=== PATIENT | male | born 1990 | race Caucasian/White ===

== ENCOUNTER 2019-12-06 03:36 | Observation (INO) | payer SELFPAY ==
[2019-12-06] MEDS ORDERED: Ondansetron PF 4 MG/2 ML Vial ONE ×2 (04:00→05:18)
[2019-12-06 04:23] LABS: #Eosinphils 0.1 thou/uL (0.0-0.7); #Monocytes 0.7 thou/uL (0.11-0.59); #Neutrophils 5.7 thou/uL (1.40-6.50); %Basophils 0.4 % (0.0-1.0); %Eosinophils 0.7 % (0.0-10.0); %Lymphocytes 31.1 % (21.0-51.0); %Monocytes 7.5 % (0.0-10.0); %Neutrophils 60.2 % (42.0-75.0); Hemoglobin 17.6 g/dL (14.0-18.0); Mean Corpuscular HGB CONC 34.1 g/dL (32.0-36.0); Mean Corpuscular Hemoglobin 32.5 pg (27.0-31.0); Mean Corpuscular Volume 95.4 fL (78.0-98.0); Mean Platelet Volume 7.7 fL (7.4-10.4); Platelet Count 310 thou/uL (130-400); RBC Distribution Width 11.6 % (11.5-14.5); Red Blood Cell (RBC) Count 5.41 mill/uL (4.70-6.10); White Blood Cell (WBC) Count 9.5 thou/uL (4.8-10.8)
[2019-12-06] MEDS ORDERED: Morphine 4 MG/ML VIAL ONE ×2 (04:30→05:18)
[2019-12-06 04:32] LABS: Acetaminophen Less than 6.0 mcg/mL (10.0-30.0); Alcohol Less than 10 mg/dL (Less than 10); Salicylate Less than 8.0 mg/dL (15.0-30.0)
[2019-12-06 04:34] LABS: ALT (SGPT) 16 U/L (8-55); AST (SGOT) 28 U/L (5-34); Albumin 4.9 g/dL (3.5-5.0); Alkaline Phosphatase 66 U/L (40-110); Anion Gap 20 mmol/L (10-20); BUN (Urea Nitrogen) 13 mg/dL (8.9-20.6); Bilirubin, Total 3.4 mg/dL (0.2-1.2); Calc. Creatinine Clearance 0 mL/min (70-130); Calcium 9.7 mg/dL (7.8-10.44); Carbon Dioxide 19 mmol/L (22-29); Chloride 100 mmol/L (98-107); Estimated GFR-MDRD 68; Globulin 2.8 g/dL (2.4-3.5); Glucose 152 mg/dL (70-105); Potassium 3.5 mmol/L (3.5-5.1); Protein, Total 7.7 g/dL (6.0-8.3); Sodium 135 mmol/L (136-145)
--- NOTE | 2019-12-06 07:28 | HP ---
This is Junior Ayoub PA-C dictating a report for Pepe Colvin MD. REQUESTING PHYSICIAN: Dr. Corona. ATTENDING SURGEON: Dr. Colvin. CONSULTATIONS: Neurosurgery, Dr. Russell. HISTORY OF PRESENT ILLNESS: The patient is a 28-year-old man, who was brought by POV to the emergency department after reportedly falling out of bed. This was unwitnessed and the patient's girlfriend thought that he had a seizure, but it is very unclear whether it was before, during, or after his fall. The patient has no reported history of seizures. Has no recent illnesses. He is not on any medications. He denies any illicit drug use, though has taken Xanax in the past recreationally, but that has been many days ago. The patient denies any bowel or bladder incontinence, and he is amnestic to all the events. The patient underwent evaluation and examination, and was noted to have a T6 compression fracture. We were asked to evaluate the patient for admission and obtain neurosurgical consultation. Of note, a prolactin was not drawn on this patient. ALLERGIES: NONE. CURRENT MEDICATIONS: None. PAST MEDICAL HISTORY: None. PAST SURGICAL HISTORY: Right inguinal lymph node biopsy. SOCIAL HISTORY: The patient lives with his girlfriend and child. 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 He drinks alcohol once every 1 to 2 weeks. Has not had any in more than a day from this accident. He denies tobacco use or drug use. FAMILY MEDICAL HISTORY: No reported history of seizure disorders. REVIEW OF SYSTEMS: Ten-point review of systems is negative as otherwise stated PHYSICAL EXAMINATION: VITAL SIGNS: Blood pressure 134/81, heart rate 90, respirations 19, oxygen saturation is 100% on room air, and temperature is 98.3. GENERAL: The patient is resting comfortably in bed. He is immobilized in a cervical collar. He is awake, alert, and oriented, with a [place] Coma Scale of 15. Of note, though he is amnestic to the events. HEENT: Head; the patient has abrasions and contusions noted to the left side of his forehead, scalp, and left periorbital area. Eyes; extraocular motion intact. PERRLA bilaterally. Ears are atraumatic without discharge. Nose, atraumatic without discharge. Oropharynx is clear. NECK: Tender to the midline at the level of C6-C7. His trachea is midline. No JVD. C-collar remained and was replaced. CHEST: Clear to auscultation with good inspiratory and expiratory effort. HEART: Regular rate and rhythm. ABDOMEN: Soft, flat, nontender with active bowel sounds. Pelvis is stable. EXTREMITIES: Neurovascularly intact x4. Strength is 5/5. BACK: Tender for most of the upper lumbar area with no noted contusions or abrasions. LABORATORY FINDINGS: White blood cell count 9.5, hemoglobin 17.6, hematocrit 51.6, platelets 310. Sodium 135, potassium 3.5, chloride 100, CO2 19, BUN 13, creatinine 1.25, glucose 152. LFTs are unremarkable with the exception of a total bilirubin of 3.4. Blood alcohol is less than 10. RADIOGRAPHIC FINDINGS: CT of the brain without contrast shows no acute abnormality. CT of the C-spine without contrast shows no acute findings. CT of the thoracic spine shows an acute T6 compression/burst fracture extending to the posterior cortex with mild fragmentation posteriorly causing minimal mass effect upon the ventral subarachnoid space. CT of the L-spine is unremarkable. ASSESSMENT/PLAN: 1. Status post fall from bed. The patient reports his bed height to be approximately 3 to 4 feet. 2. T6 compression/burst fracture. 3. Cervical spine tenderness. 4. Forehead contusion and abrasions. 5. Possible postconcussive seizure. PLAN: Plan will be to admit the patient to the surgical floor. We will keep him n.p.o. until he is evaluated by Neurosurgery, who on initial report will treat this nonoperatively with a brace. The patient will have pain control, pulmonary toilet, gastritis, and mechanical VTE prophylaxis. Once the patient is fitted with a brace and we were able to sit him up, we will start a diet and have him work with the therapist once his pain is controlled. He is ambulatory. He will likely be able to be discharged home and this could be within next 24 to 48 hours. The evaluation, examination, laboratory, and radiographic findings will be discussed with Dr. Colvin after this dictation. Job ID: [id number]
[2019-12-06] MEDS ORDERED: Sodium Chloride 0.9% 1,000 ML IV SCH (07:50)
[2019-12-06] MEDS ORDERED: traMADol HCl 50 MG TAB PO PRN (07:50)
[2019-12-06] MEDS ORDERED: Ketorolac Tromethamine 30 MG/ML VIAL IVP SCH (07:50)
[2019-12-06] MEDS ORDERED: Cyclobenzaprine 10 MG TAB PO PRN (07:50)
[2019-12-06] MEDS ORDERED: Dextrose 5% in Water 1,000 ML IV PRN (07:50)
[2019-12-06] MEDS ORDERED: Dextrose 50% Abboject 50 ML SYRINGE SLOW IVP PRN (07:50)
--- NOTE | 2019-12-06 07:53 | CT ---
PRELIMINARY REPORT/DIRECT RADIOLOGY/EMERGENCY AFTER HOURS PROCEDURE: EXAM: CT Cervical Spine Without Intravenous Contrast. CLINICAL HISTORY: ER 13.. PT HAD A SEIZURE TONIGHT WHILE SLEEPING. PT DENIES HX OF SEIZURE OR MEMORY OF THE INCIDENT. PT FELL FROM BED, PT C/O MID BACK PAIN COMPARISON: None provided. FINDINGS: BONES: No acute fracture is seen in the cervical spine. Nonspecific straightening of the cervical joaquim dosis, possibly positional or due to muscle spasm. Minimal grade 1 anterolisthesis of C2 on C3. DISCS / DEGENERATIVE CHANGES: Intervertebral disc spaces are preserved. SOFT TISSUES: No prevertebral soft tissue swelling. IMPRESSION: No acute fracture is seen in the cervical spine. ELECTRONICALLY SIGNED BY: Al Prabhakar MD Dec 06, 2019 4:53:09 AM APARTMENT LEASING AGENT FINAL REPORT CT CERVICAL SPINE WITHOUT CONTRAST: History: Seizure. Comparison: None. Findings: No acute fracture or malalignment. Impression: Findings and impression are concordant with the preliminary report. Transcribed Date/Time: 12/06/2019 8:14 AM
--- NOTE | 2019-12-06 07:54 | CT ---
PRELIMINARY REPORT/DIRECT RADIOLOGY/EMERGENCY AFTER HOURS PROCEDURE: EXAM: CT Head Without Intravenous Contrast. CLINICAL HISTORY: ER 13.. PT HAD A SEIZURE TONIGHT WHILE SLEEPING. PT DENIES HX OF SEIZURE OR MEMORY OF THE INCIDENT. PT FELL FROM BED, PT C/O MID BACK PAIN COMPARISON: None provided. FINDINGS: BRAIN: No acute intracranial hemorrhage, mass-effect, or midline shift. No CT evidence of acute infar ct in a large vascular territory. Minimal nonspecific subcortical white matter hypoattenuation. VENTRICLES: Normal in size and configuration for age. ORBITS: The orbits are unremarkable. SINUSES AND MASTOIDS: Minimal sinus mucosal thickening. No air-fluid levels. SOFT TISSUES: No sizable scalp hematoma. BONES: No depressed calvarial fracture. IMPRESSION: No acute intracranial abnormality. Minimal nonspecific white matter changes. ELECTRONICALLY SIGNED BY: Al Prabhakar MD Dec 06, 2019 4:50:27 AM REGULATORY LEAD FINAL REPORT CT BRAIN WITHOUT CONTRAST: History: Seizure. Fall. Comparison: None. Findings/Impression: Majority of the findings and impression are concordant with the preliminary report. No significant wh ite matter changes are appreciated. Transcribed Date/Time: 12/06/2019 8:23 AM
--- NOTE | 2019-12-06 07:56 | CT ---
PRELIMINARY REPORT/DIRECT RADIOLOGY/EMERGENCY AFTER HOURS PROCEDURE: EXAM: CT Lumbar Spine Without Intravenous Contrast. CLINICAL HISTORY: ER 13.. PT HAD A SEIZURE TONIGHT WHILE SLEEPING. PT DENIES HX OF SEIZURE OR MEMORY OF THE INCIDENT. PT FELL FROM BED, PT C/O MID BACK PAIN COMPARISON: None provided. FINDINGS: BONES: No acute fracture is seen in the lumbar spine. Anatomic alignment. DISCS/DEGENERATIVE CHANGES: Intervertebral disc spaces are preserved. SOFT TISSUES: Unremarkable. IMPRESSION: No acute fracture is seen in the lumbar spine. ELECTRONICALLY SIGNED BY: Al Prabhakar MD Dec 06, 2019 4:56:43 AM ORDER CHECKER PACKER PROCESSER FINAL REPORT CT LUMBAR SPINE WITHOUT CONTRAST: History: Trauma. Pain. Comparison: None. Findings/IMPRESSION: Findings and impression are concordant with the preliminary report. Transcribed Date/Time: 12/06/2019 8:21 AM
--- NOTE | 2019-12-06 08:01 | CT ---
PRELIMINARY REPORT/DIRECT RADIOLOGY/EMERGENCY AFTER HOURS PROCEDURE: Note: There was an inquiry about the T1 spinous process deformity, which appears well-corticated, sug gesting a chronic finding. Addendum electronically signed by Al Prabhakar MD on December 06, 2019 5:12:37 AM TIMBER POISONER IMPRESSION (additional): Mild T5 wedge compression deformity, also suspicious for an acute fracture. I personally discussed this additional finding with Dr. David Saenz via telephone at 5:59 AM EST on 09/2020. Addendum electronically signed by Al Prabhakar MD on December 06, 2019 5:03:26 AM TIMBER POISONER Receipt of this report by the clinical staff was confirmed with DENISE DURAN MD by Nikki Carreno on Dec 06, 2019 04:51:00 TIMBER POISONER. Addendum electronically signed by Teresa Carreno on December 06, 2019 4:51:42 AM TIMBER POISONER EXAM: CT Thoracic Spine Without Intravenous Contrast. CLINICAL HISTORY: ER 13.. PT HAD A SEIZURE TONIGHT WHILE SLEEPING. PT DENIES HX OF SEIZURE OR MEMORY OF THE INCIDENT. PT FELL FROM BED, PT C/O MID BACK PAIN COMPARISON: None provided. FINDINGS: BONES: Diffuse demineralization of the osseous structures. Acute T6 burst fracture extending to the p osterior cortex with mild fragmentation posteriorly causing minimal mass-effect upon the ventral subarachnoid space. MRI is recommended for further characterization. DISCS / DEGENERATIVE CHANGES: Mild multilevel spondylosis with loss of intervertebral disc space and osteophytic spurring. SOFT TISSUES: No pneumothorax. Dependent hypoventilatory changes in the visualized lung reveles. IMPRESSION: Acute T6 compression/burst fracture extending to the posterior cortex with mild fragmentation posteri luis alfredo causing minimal mass-effect upon the ventral subarachnoid space. MRI is recommended for further characterization. ELECTRONICALLY SIGNED BY: Al Prabhakar MD Dec 06, 2019 4:47:28 AM TIMBER POISONER FINAL REPORT CT THORACIC SPINE WITHOUT CONTRAST: History: Pain. Fall from bed. Comparison: None. Findings/impression: Complete burst fracture of T6 as described with minimal retropulsion. There is also an incomplete bur st fracture of T5 with 10% anterior height loss and 15% superior endplate height loss. No significant retropulsion. There are fractures through the heads of the left fifth and sixth ribs. Con cern for a nondisplaced left T6 transverse process fracture. Transcribed Date/Time: 12/06/2019 8:18 AM
[2019-12-06] MEDS: traMADol HCl 50 MG TAB PO SCH ×2 (08:42→14:13)
[2019-12-06] MEDS ORDERED: Famotidine 20 MG TAB PO SCH (09:00)
--- NOTE | 2019-12-06 09:09 | CON ---
DATE OF CONSULTATION: HISTORY OF PRESENT ILLNESS: The patient is a 28-year-old male, who presented to the Emergency Department after falling event off his bed with questionable seizure like activity. He has no prior history of seizures. He was brought to the Emergency Department for additional evaluation and for his complaints of significant back pain. A noncontrast CT of the head, C-spine, T-spine, and L-spine were done, which were notable for T5 compression fracture and a T6 burst deformity with mild retropulsion. The patient was neurologically intact throughout his ER course, not complaining of dysesthesias or weakness or bowel or bladder issues. I visited the patient at the bedside on Reserve-3. He is awake and alert, in no acute distress. No neurologic deficits are appreciated. He is currently on spinal precautions until he is fitted with his CTLSO brace. He is currently in a hard collar as well. PAST MEDICAL HISTORY: Otherwise healthy. Denies any prior medical problems. PAST SURGICAL HISTORY: Right inguinal, no biopsy. SOCIAL HISTORY: He lives with his girlfriend. 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 Drinks socially. Does not use any drugs. He does not smoke. REVIEW OF SYSTEMS: Per HPI. PHYSICAL EXAMINATION: VITAL SIGNS: Stable. CONSTITUTIONAL: Awake and alert, in no acute distress. HEENT: Head, abrasions noticed along the left side of the forehead and periorbital region. Eyes, PERRLA. Extraocular movements intact. ENT, oral mucosa is pink, intact, and moist. He has normal voice. NECK: He is currently being immobilized in a hard collar. He is slightly tender over the posterior lower cervical spine. CARDIOVASCULAR: Regular rate and rhythm. RESPIRATORY: Symmetric chest expansion. No evidence of dyspnea. MUSCULOSKELETAL: Free active range of motion of all extremities. No focal motor weakness. No reflex asymmetry. ASSESSMENT AND PLAN: This is a 28-year-old male, status post fall from bed with questionable seizure, who was found to have a T5 compression deformity and a T6 burst fracture with mild retropulsion. He is neurologically intact and not having any dysesthesias or other neurologic complaints. I have ordered a custom brace to be fitted by [facility]. The patient should wear the brace at all times. Once he is fitted with a brace, he can begin to mobilize. I do not anticipate any acute neurosurgical intervention at this time, but we will follow his progress closely. I have discussed this plan with Dr. Russell, who is in agreement. Job ID: [id number] MTDD
[2019-12-06] MEDS: Ondansetron PF 4 MG/2 ML Vial IVP PRN ×2 (10:48→18:26)
[2019-12-06] MEDS ORDERED: Ondansetron ODT 4 MG TAB PO PRN (11:22)
[2019-12-06 11:37] VITALS: BMI 21.1
[2019-12-06] MEDS ORDERED: Ibuprofen 600 MG TAB PO SCH (14:00)
[2019-12-06] MEDS ORDERED: Pantoprazole 40 MG VIAL IVP SCH (14:45)
[2019-12-06] MEDS ORDERED: Acetaminophen/Codeine 30-300mg Tablet PO PRN ×2 (15:06)
[2019-12-06] MEDS ORDERED: Acetaminophen 650 MG Suppository PR SCH (15:15)
--- NOTE | 2019-12-06 15:41 | PRG ---
DATE OF SERVICE: 12/06/2019 The patient was seen and examined. I agree with Tigist Brandyn's evaluation on 12/06/2019. The patient is a 28-year-old male, who apparently either fell out of bed or had some type of syncopal or seizure episode yesterday. He has poor recall of the event and is generally not a great historian. He is having some upper back pain that is gradually improving. He has no specific neurologic findings or complaints. Imaging including CT of the brain, cervical, and lumbar spine is normal. CT of the thoracic spine reveals T5 and T6 fractures. The T6 being of meaningful severity. There is minimal canal compromise, but slight increase in kyphosis. IMPRESSION AND PLAN: The patient has T5 and T6 fractures that we will treat in TLSO brace. Given the location of the fractures, it is possible he will ultimately require CTLSO immobilization, but for now, we will try the clamshell type TLSO at all times. We will see him back in 4 weeks in followup. After close discussion with the family, there was a fall from a ladder onto a marble floor, which seems fairly significant approximately 6 to 8 weeks ago. It is possible these fractures were sustained at that time, but impossible to say with any certainty. Job ID: [id number]
--- NOTE | 2019-12-06 17:12 | PRG ---
DATE OF SERVICE: 12/06/2019 Moses Leonard fell in bed, suffered a T5 compression and T6 burst fracture. He has been treated by Neurosurgery with a brace. He has now required that and immobilized. He reports that he has a history of GERD, Andrews esophagus, and has a sensitive stomach. He cannot tolerate Ultram. I have talked to the nurses that we will continue efforts at Tylenol and ibuprofen, but use Tylenol No.3 if necessary. The patient possibly could go home tomorrow if he tolerates his medications and pain is adequately controlled. I agree with plan per Emilia Gibbs. Job ID: [id number]
[2019-12-06] MEDS: Morphine 4 MG/ML VIAL SLOW IVP PRN (18:26)
[2019-12-06] MEDS: Acetaminophen 325 MG TAB PO SCH ×2 (18:28→23:37)
--- NOTE | 2019-12-06 19:23 | PRG ---
DATE OF SERVICE: 12/06/2019 SUBJECTIVE: Mr. Leonard is a 28-year-old male, status post fall from a bed. He has sustained T5 compression fracture and T6 burst fracture with neurological intact, and not having any neurology complaints. Per Neurosurgery, he will need to have treated conservatively with TLSO brace. Today, the patient reports he developed some episodes of nausea and vomiting, which he has trouble taking p.o. medication, pain is severe. However, vital signs have been stable. He tolerated the diet. Currently, the patient sits on a chair with no acute respiratory distress. Complains of back pain and feeling of nausea. The patient does have history of gastric ulcer and reflux. OBJECTIVE: VITAL SIGNS: Temperature 99.5, heart rate 104, respiratory rate 18, O2 saturation 96% on room air, blood pressure 136/87. LUNGS: Clear bilaterally. HEART: Regular rate and rhythm. ABDOMEN: Soft, nondistended. EXTREMITIES: Neurovascularly intact x4. NEUROLOGIC: No focal neurology deficits. ASSESSMENT: Status post fall from bed, T5 compression fracture and T6 burst fracture with no neurological deficits, history of peptic ulcer. PLAN: We will discontinue Toradol. Initiate Protonix treatment for peptic ulcer, Zofran for nausea and vomiting. We will order Tylenol and Tylenol No. 3 for pain control. The patient reports he is not tolerated with tramadol, and wear TLSO brace at all time. Per Neurosurgery, the patient can be discharged tomorrow. We will need to see a neurosurgeon in 6 to 8 weeks and we will follow up on peptic ulcer symptoms. The patient was seen by Dr. Colvin, who agreed with treatment and diagnosis and treatment plan. Job ID: [id number]
--- NOTE | 2019-12-07 05:31 | PRG ---
DATE OF SERVICE: SUBJECTIVE: The patient remains on the surgical floor. He is status post admission for fractures of T5 and T6. He was evaluated by Neurosurgery today, who recommended TLSO brace, but may eventually require a CTLSO brace. The patient had some issues with some significant nausea and vomiting, which he attributed to his gastroesophageal reflux disease and the Ultram. These medications were adjusted, and he reports resolution of his nausea. The patient does have his brace fitted. He is in a TLSO brace with an Laurel collar. The patient otherwise states his pain is controlled, and he is using the bathroom without difficulty. OBJECTIVE: VITAL SIGNS: Stable. The patient's [place] Coma Scale is 15. He is neurologically intact. ASSESSMENT: Status post T5 and T6 fractures. PLAN: Plan will be to continue supportive care, encourage physical and occupational therapy, and we will get clarification from Neurosurgery regarding his brace to remind TLSO or CTLSO wear instructions and status of his cervical collar. At my exam, the patient had minimal C-spine tenderness, but in light of Neurosurgery not removing it, I left it in place. Job ID: [id number]
[2019-12-07] MEDS: Ondansetron PF 4 MG/2 ML Vial IVP PRN (05:54)
[2019-12-07] MEDS: Morphine 4 MG/ML VIAL SLOW IVP PRN (05:59)
[2019-12-07] MEDS ORDERED: Famotidine/PF 20 mg/2ml Vial SLOW IVP SCH (06:15)
[2019-12-07] MEDS: Acetaminophen 325 MG TAB PO SCH ×2 (06:23→11:16)
[2019-12-07 08:10] VITALS: TEMP 98.9
[2019-12-07 16:05] VITALS: BP 132/81
[2019-12-07] MEDS ORDERED: Famotidine 20 MG TAB PO SCH (21:00)
--- NOTE | 2019-12-09 05:02 | DIS ---
DATE OF ADMISSION: 12/06/2019 DATE OF DISCHARGE: 12/07/2019 ADMISSION DIAGNOSES: 1. Status post fall from a bed. 2. T5 compression fracture and T6 burst fracture with no neurological deficits. 3. History of peptic ulcer. DISCHARGE DIAGNOSES: 1. Status post fall from bed. 2. T5 compression fracture and T6 burst fracture with no neurological deficits, conservative treatment. 3. History of peptic ulcer. CONSULTING PHYSICIAN: Dr. Miguel Russell. PROCEDURE: None. HOSPITAL COURSE: Mr. Leonard is a 28-year-old male, status post fall from the bed. He sustained a T5 compression fracture and T6 burst fracture with neurological intact. The patient being treated conservatively using TLSO brace and C-collar per neurosurgeon, Dr. Russell. During the course of staying in the hospital, the patient developed no neurological deficits. GCS 15. However, he developed some abdominal pain in which his abdominal pain and improved and resolved today before he has been discharged. The patient tolerated with his regular diet, and his urine is adequate. His vital signs have been stable. PHYSICAL EXAMINATION: GENERAL: The patient is lying in bed comfortable with no acute respiratory distress. TLSO brace and C-collar brace in place. VITAL SIGNS: Temperature 98.9, heart rate 70, respiratory rate 18, O2 saturation 98% on room air, and blood pressure 137/79. LUNGS: Clear bilaterally. HEART: Regular rate and rhythm. ABDOMEN: Soft, nondistended. EXTREMITIES: Neurovascularly intact x4. NEUROLOGIC: No focal neurology deficits. GCS 15. DISCHARGE CONDITION: Fair. DISCHARGE DISPOSITION: Home. DISCHARGE INSTRUCTIONS: The patient is to take medication as directed. The patient is to keep TLSO brace at all time and C-collar brace at all time. The patient is to see Dr. Russell in four weeks. The patient is to have regular diet. DISCHARGE MEDICATIONS: Tylenol No. 3 and Flexeril. Job ID: [id number]
== END 2019-12-07 16:30 | disposition home or self-care (01) ==
LOC: ERS 03:36 → SURG A 07:46
PROVIDERS: ADMIT Specialist; ATTEND Specialist
DX: S22.051A Stable burst fracture of T5-T6 vertebra, initial encounter for closed fracture (principal); S22.059A Unspecified fracture of T5-T6 vertebra, initial encounter for closed fracture; S00.81XA Abrasion of other part of head, initial encounter; R56.9 Unspecified convulsions; M47.814 Spondylosis without myelopathy or radiculopathy, thoracic region; K21.9 Gastro-esophageal reflux disease without esophagitis; W06.XXXA Fall from bed, initial encounter
CPT/HCPCS: 36416; 70450; 72125; 72128; 72131; 80053; 80307; 85025; 93005; 96361; 96374; 96375; 96376; C9113; G0378; J1885; J2270; J2405; L0120; L0639; S0028

== ENCOUNTER 2020-01-07 09:32 | Outpatient (CLI) | payer OTHER ==
--- NOTE | 2020-01-07 09:54 | RAD ---
3 views of the thoracic spine: 01/07/2020 COMPARISON: CT of the thoracic spine 12/06/2019 HISTORY: Fall, trauma, pain FINDINGS: Prior CT examination of the thoracic spine performed 12/06/2019 demonstrates T5 and T6 fract ure deformities. On the current examination there is a mild degree of focal thoracic spine levoscoliosis at the T5-6 level. The T5 and T6 vertebral bodies are not well assessed on the lateral examination secondary to overlying osseous structures including the bilateral scapula and multiple ribs. A moderate degree of anterior wedging is suspected at T6. IMPRESSION: Limited thoracic spine radiographs as detailed above.
== END 2020-01-07 09:33 | disposition home or self-care (01) ==
LOC: TBSIIMAG 09:32
PROVIDERS: ATTEND Neurological Surgery
DX: S22.050A Wedge compression fracture of T5-T6 vertebra, initial encounter for closed fracture (principal); S22.052A Unstable burst fracture of T5-T6 vertebra, initial encounter for closed fracture
CPT/HCPCS: 72072

== ENCOUNTER 2020-02-05 12:53 | Outpatient (CLI) | payer OTHER ==
--- NOTE | 2020-02-05 13:52 | RAD ---
THORACIC SPINE 2 VIEWS: HISTORY: Followup fractures. COMPARISON: 01/07/2020. FINDINGS: Again noted is vertical height loss burst fracture of T6. T5 region is mostly obscured. No signific ant malalignment. IMPRESSION: Stable exam from prior study. POS: TPC
== END 2020-02-05 12:54 | disposition home or self-care (01) ==
LOC: TBSIIMAG 12:53
PROVIDERS: ATTEND Neurological Surgery
DX: M48.56XA Collapsed vertebra, not elsewhere classified, lumbar region, initial encounter for fracture (principal)
CPT/HCPCS: 72072

== ENCOUNTER 2020-08-13 15:17 | Emergency (ER) | payer SELFPAY ==
[~2020-08-13 15:17] MED LIST: Iopamidol-370 76% 500 ML 1 ML ONE
[2020-08-13 15:36] LABS: #Basophils 0.1 thou/uL (0.0-0.2); #Eosinphils 0.1 thou/uL (0.0-0.7); #Lymphocytes 2.9 thou/uL (1.20-3.40); #Monocytes 0.4 thou/uL (0.11-0.59); #Neutrophils 5.7 thou/uL (1.40-6.50); %Basophils 0.7 % (0.0-1.0); %Eosinophils 1.4 % (0.0-10.0); %Lymphocytes 31.5 % (21.0-51.0); %Monocytes 4.3 % (0.0-10.0); %Neutrophils 62.2 % (42.0-75.0); Hemoglobin 16.3 g/dL (14.0-18.0); Mean Corpuscular HGB CONC 34.4 g/dL (32.0-36.0); Mean Corpuscular Hemoglobin 33.2 pg (27.0-31.0); Mean Corpuscular Volume 96.5 fL (78.0-98.0); Mean Platelet Volume 7.5 fL (7.4-10.4); Platelet Count 314 thou/uL (130-400); RBC Distribution Width 11.4 % (11.5-14.5); Red Blood Cell (RBC) Count 4.91 mill/uL (4.70-6.10); White Blood Cell (WBC) Count 9.1 thou/uL (4.8-10.8)
[2020-08-13 15:42] LABS: Prothrombin Time 13.2 sec (12.0-14.7)
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
[2020-08-13 16:00] LABS: ALT (SGPT) 27 U/L (8-55); AST (SGOT) 32 U/L (5-34); Albumin 4.4 g/dL (3.5-5.0); Alcohol 289 mg/dL (Less than 10); Alkaline Phosphatase 100 U/L (40-110); Anion Gap 16 mmol/L (10-20); BUN (Urea Nitrogen) 10 mg/dL (8.9-20.6); Bilirubin, Total 0.4 mg/dL (0.2-1.2); Calc. Creatinine Clearance 0 mL/min (70-130); Calcium 8.9 mg/dL (7.8-10.44); Carbon Dioxide 22 mmol/L (22-29); Chloride 106 mmol/L (98-107); Estimated GFR-MDRD 83; Globulin 2.9 g/dL (2.4-3.5); Glucose 100 mg/dL (70-105); Potassium 3.9 mmol/L (3.5-5.1); Protein, Total 7.3 g/dL (6.0-8.3); Sodium 140 mmol/L (136-145)
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
== END 2020-08-13 17:30 | disposition home or self-care (01) ==
LOC: ERS 15:17
DX: S22.051A Stable burst fracture of T5-T6 vertebra, initial encounter for closed fracture (principal); K21.9 Gastro-esophageal reflux disease without esophagitis; G43.909 Migraine, unspecified, not intractable, without status migrainosus; V49.9XXA Car occupant (driver) (passenger) injured in unspecified traffic accident, initial encounter
CPT/HCPCS: 70450; 71260; 72125; 74177; 80053; 80307; 85025; 85610; 85730; G0390; Q9967

== ENCOUNTER 2020-08-19 15:15 | Emergency (ER) | payer SELFPAY | END 2020-08-19 17:35 | disposition home or self-care (01) | LOC: ERS 15:15 | DX: F10.129 Alcohol abuse with intoxication, unspecified (principal); K21.9 Gastro-esophageal reflux disease without esophagitis; G43.909 Migraine, unspecified, not intractable, without status migrainosus; Z87.891 Personal history of nicotine dependence | CPT/HCPCS: 96360; 96361 ==